=== PATIENT | female | born 1945 | race Caucasian/White ===

== ENCOUNTER 2023-04-30 09:56 | Emergency (ER) | payer MEDICARE, BC ==
[2023-04-30] VITALS (22 sets, daily range): BP systolic 109–157; BP diastolic 55–116
[~2023-04-30] VITALS: Ht 165.1 cm; Wt 68.0 kg
[2023-04-30] MEDS ORDERED: TRAMADOL HYDROC50 M1 PO (14:29)
== END 2023-04-30 14:40 | disposition home or self-care (01) ==
LOC: ED 09:56
PROC: 0PSJXZZ Reposition Left Radius, External Approach (ICD-10-PCS; principal; 2023-04-30)
PROC: 0PSLXZZ Reposition Left Ulna, External Approach (ICD-10-PCS; 2023-04-30)
DX: S52.502A Unspecified fracture of the lower end of left radius, initial encounter for closed fracture (principal); S52.602A Unspecified fracture of lower end of left ulna, initial encounter for closed fracture; I10 Essential (primary) hypertension; W01.0XXA Fall on same level from slipping, tripping and stumbling without subsequent striking against object, initial encounter; Y92.89 Other specified places as the place of occurrence of the external cause; Z20.822 Contact with and (suspected) exposure to COVID-19